=== PATIENT | male | born 1955 | race Caucasian/White ===

== ENCOUNTER → 2018-01-31 | Outpatient (CLI) | payer BC ==
[~2018-01-31] MED LIST: IOHEXOL 300 MG/ML 100ML VIAL. IV
== END | disposition home or self-care (01) ==
LOC: CT 13:22
DX: R59.1 Generalized enlarged lymph nodes (principal)
CPT/HCPCS: 70491

== ENCOUNTER 2019-12-11 18:47 | Emergency (ER) | payer BC ==
[2019-12-11] MEDS ORDERED: ONDANSETRON PF 4 MG/2 ML VIAL. IVP ONE (19:15)
[2019-12-11] MEDS ORDERED: fentaNYL PF VIAL 100 MCG/2 ML VIAL IVP ONE (19:15)
[2019-12-11] MEDS ORDERED: LABETALOL 20 MG/4 ML DISP.SYRIN. IVP ONE (19:15)
[2019-12-11 19:27] LABS: BASO # 0.1 x10^3/uL (0.0-0.2); BASO % 1 % (0-3); EOS # 0.1 x10^3/uL (0.0-0.7); EOS % 0 % (0-3); HEMATOCRIT 48.5 % (39.0-53.0); HEMOGLOBIN 16.3 g/dL (13.0-17.5); LYMPH % 6 % (24-48); MEAN CORPUSCULAR HEMOGLOBIN 29 pg (25-35); MEAN CORPUSCULAR HGB CONC 34 g/dL (31-37); MEAN CORPUSCULAR VOLUME 85 fL (79-100); MONO # 0.8 x10^3/uL (0.0-1.1); MONO % 5 % (0-9); NEUT % 88 % (31-73); PLATELET COUNT 256 x10^3/uL (140-400); RED CELL DISTRIBUTION WIDTH 13.7 % (11.5-14.5)
[2019-12-11 19:41] LABS: CALCIUM 9.3 mg/dL (8.5-10.1); CREATININE 1.4 mg/dL (0.7-1.3); GFR 51.2; POTASSIUM 3.3 mmol/L (3.5-5.1)
[2019-12-11 19:47] LABS: ALBUMIN 3.8 g/dL (3.4-5.0); ALBUMIN/GLOBULIN RATIO 0.9 (1.0-1.7); TOTAL BILIRUBIN 0.5 mg/dL (0.2-1.0)
[2019-12-11 19:52] LABS: % LYMPHS 6 % (24-48); % MONOS 3 % (0-10); % SEGS 91 % (35-66); PLT ESTIMATE ADEQUATE (ADEQUATE); TOXIC GRANULATION SLIGHT
--- NOTE | 2019-12-11 20:34 | RAD ---
STUDY: CT head without contrast INDICATION: Headache. COMPARISON: None. TECHNIQUE: Axial CT imaging through the head without the use of intravenous contrast. Sagittal and coronal reformats were obtained. One or more of the following individualized dose reduction techniques were utilized for this examination: 1. Automated exposure control 2. Adjustment of the mA and/or kV according to patient size 3. Use of iterative reconstruction technique. FINDINGS: No acute intracranial hemorrhage. No mass effect or midline shift. Relatively symmetric sulcation pattern. Note is made that there are subtle areas of low attenuation involving portions of the right cerebral hemisphere such as at the temporal-occipital region, image 13 series 2, extending along the lower aspect of the temporal lobe such as on image 9 series 2. No acute calvarial abnormality. Underpneumatized left mastoid air cells. Normally aerated right mastoid air cells. No layering fluid seen within the visualized paranasal sinuses. IMPRESSION: 1. No acute intracranial hemorrhage. 2. Subtle regions of low attenuation involving portions of the right cerebral hemisphere however given the distribution and subtle nature, artifact is the favored etiology. There is no mass effect or midline shift and the overall sulcation pattern of both cerebral hemispheres is essentially symmetric. If there are localized neurologic deficits, MRI could be considered but is not felt necessary based on the CT findings alone. Electronically signed by: ADELFO GRAY MD (12/11/2019 8:31 PM) [facility]
[2019-12-11 21:57] VITALS: BP 157/83
[2019-12-11] MEDS ORDERED: ONDA4TAB7 PO (22:20)
[2019-12-11] MEDS ORDERED: AMOX1TAB61 PO (22:20)
--- NOTE | 2019-12-11 22:21 | PHYS DOC ---
Past Medical History Alcohol Use: None Adult General Chief Complaint Chief Complaint: DIZZY/LIGHT HEADED HPI HPI Patient is a 64 year old female with history of multiple medical problems who presents with headache, neck pain, nausea vomiting and dizziness. Patient states he took his routine medication this. Accidentally took an extra 50 mg dose of hydralazine. Patient reports dizziness after hydralazine. He also reports posterior neck pain with soft tissue swelling. Patient states he was evaluated by his PCP earlier this week for this and was prescribed antibiotics however, the antibiotics and ascription was sent [facility] patient has yet to have the prescription male. Patient denies fevers chills, sweats. Denies neck stiffness rash. No chest pain palpitations. No abdominal pain. Denies urinary frequency urgency or dysuria. Extremity weakness or loss of sensation or other strokelike symptoms. No other acute symptoms or complaints. [] Review of Systems Review of Systems Review of symptoms as per history of present illness. All other review symptoms are negative All other systems were reviewed and found to be within normal limits, except as documented in this note. Current Medications Current Medications Current Medications Medications (Trade) Dose Ordered Sig/Betty Start Time Stop Time Status Last Admin Dose Admin Amoxicillin/ Clavulanate Potassium (Augmentin 875/ 125mg) 1 tab 1X ONCE 12/11/19 22:30 12/11/19 22:31 Fentanyl Citrate (Fentanyl 2ml Vial) 75 mcg 1X ONCE 12/11/19 19:15 12/11/19 19:18 DC 12/11/19 19:24 75 MCG Labetalol HCl (Normodyne Iv Push) 20 mg 1X ONCE 12/11/19 19:15 12/11/19 19:18 DC 12/11/19 19:24 20 MG Ondansetron HCl (Zofran Odt) 4 mg 1X ONCE 12/11/19 22:30 12/11/19 22:31 Ondansetron HCl (Zofran) 4 mg 1X ONCE 12/11/19 19:15 12/11/19 19:18 DC 12/11/19 19:23 4 MG Allergies Allergies Allergies Coded Allergies Type Severity Reaction Last Updated Verified No Known Drug Allergies 01/31/18 No Physical Exam Physical Exam Constitutional: Well developed, well nourished, no acute distress, non-toxic appearance. [] HENT: Normocephalic, atraumatic, bilateral external ears normal, oropharynx moist, no oral exudates, nose normal. [] Eyes: PERRLA, EOMI, conjunctiva normal, no discharge. [] Neck: Normal range of motion, right upper paracervical subcutaneous soft tissue mass, mass presses and is minimally tender. No overlying induration or erythema.. [] Cardiovascular:Heart rate regular rhythm, no murmur [] Lungs & Thorax: Bilateral breath sounds clear to auscultation [] Abdomen: Bowel sounds normal, soft, no tenderness. [] Skin: Warm, dry, no erythema, no rash. [] Back: No tenderness, no CVA tenderness. [] Extremities: No tenderness, no cyanosis, no clubbing, ROM intact, no edema. [] Neurologic: Alert and oriented X 3, cranial nerves II through XII grossly intact, normal motor function, normal sensory function, no focal deficits noted. [] Psychologic: Affect normal, judgement normal, mood normal. [] Current Patient Data Vital Signs Vital Signs Date Time Temp Pulse Resp B/P (MAP) Pulse Ox O2 Delivery O2 Flow Rate FiO2 12/11/19 20:30 75 18 97 12/11/19 19:24 209/108 12/11/19 19:24 Room Air 12/11/19 19:05 97.7 97.7 Lab Values Laboratory Tests Test 12/11/19 19:10 White Blood Count 16.0 x10^3/uL (4.0-11.0) H Red Blood Count 5.70 x10^6/uL (4.30-5.70) Hemoglobin 16.3 g/dL (13.0-17.5) Hematocrit 48.5 % (39.0-53.0) Mean Corpuscular Volume 85 fL (79-100) Mean Corpuscular Hemoglobin 29 pg (25-35) Mean Corpuscular Hemoglobin Concent 34 g/dL (31-37) Red Cell Distribution Width 13.7 % (11.5-14.5) Platelet Count 256 x10^3/uL (140-400) Neutrophils (%) (Auto) 88 % (31-73) H Lymphocytes (%) (Auto) 6 % (24-48) L Monocytes (%) (Auto) 5 % (0-9) Eosinophils (%) (Auto) 0 % (0-3) Basophils (%) (Auto) 1 % (0-3) Neutrophils # (Auto) 14.0 x10^3/uL (1.8-7.7) H Lymphocytes # (Auto) 1.0 x10^3/uL (1.0-4.8) Monocytes # (Auto) 0.8 x10^3/uL (0.0-1.1) Eosinophils # (Auto) 0.1 x10^3/uL (0.0-0.7) Basophils # (Auto) 0.1 x10^3/uL (0.0-0.2) Segmented Neutrophils % 91 % (35-66) H Lymphocytes % 6 % (24-48) L Monocytes % 3 % (0-10) Toxic Granulation Slight Platelet Estimate Adequate (ADEQUATE) Sodium Level 139 mmol/L (136-145) Potassium Level 3.3 mmol/L (3.5-5.1) L Chloride Level 103 mmol/L (98-107) Carbon Dioxide Level 27 mmol/L (21-32) Anion Gap 9 (6-14) Blood Urea Nitrogen 18 mg/dL (8-26) Creatinine 1.4 mg/dL (0.7-1.3) H Estimated GFR (Cockcroft-Gault) 51.2 BUN/Creatinine Ratio 13 (6-20) Glucose Level 215 mg/dL (70-99) H Calcium Level 9.3 mg/dL (8.5-10.1) Total Bilirubin 0.5 mg/dL (0.2-1.0) Aspartate Amino Transferase (AST) 20 U/L (15-37) Alanine Aminotransferase (ALT) 24 U/L (16-63) Alkaline Phosphatase 101 U/L (46-116) Troponin I Quantitative < 0.017 ng/mL (0.000-0.055) Total Protein 8.0 g/dL (6.4-8.2) Albumin 3.8 g/dL (3.4-5.0) Albumin/Globulin Ratio 0.9 (1.0-1.7) L Laboratory Tests 12/11/19 19:10 Laboratory Tests 12/11/19 19:10 EKG EKG [EKG: Reviewed] Radiology/Procedures Radiology/Procedures [CT head: No definite acute findings per radiology report] Course & Med Decision Making Course & Med Decision Making Pertinent Labs and Imaging studies reviewed. (See chart for details) [Dizziness and nausea secondary to medication taken prior to ED arrival versus hypertension. Patient blood pressure improved with labetalol. Blood pressure stable. Patient states he feels much better. Elevated white blood cell count w ith lymphadenopathy. We'll place on a course of antibiotics or discontinue patient. Treatment and follow-up with PCP next week for reevaluation. Return precautions reviewed. Patient verbalizes understanding and agreement discharge instructions prior to departure Dragon Disclaimer Dragon Disclaimer This electronic medical record was generated, in whole or in part, using a voice recognition dictation system. Departure Departure Impression: Primary Impression: Dizziness Additional Impression: Cervical lymphadenopathy Disposition: HOME, SELF-CARE Condition: STABLE Referrals: Anthony CHILDRESS MD (PCP) Patient Instructions: Dizziness, [id number] Additional Instructions: ROS as per HPI Scripts Amoxicillin/Potassium Clav (AUGMENTIN 875-125 TABLET) 1 Each Tablet 1 TAB PO BID for 10 Days, #20 TAB 0 Refills Prov: SABRA JASON DO 12/11/19 Ondansetron Hcl (ZOFRAN) 4 Mg Tablet 1 TAB PO Q6HRS, #10 TAB 0 Refills Prov: SABRA JASON DO 12/11/19 Problem Qualifiers SABRA JASON DO Dec 11, 2019 22:21
[2019-12-11] MEDS ORDERED: ONDANSETRON ODT 4 MG TAB.RAPDIS. PO ONE (22:30)
[2019-12-11] MEDS ORDERED: AMOXICILLIN/K CLAV 875/125MG TABLET. PO ONE (22:30)
--- NOTE | 2019-12-11 23:34 | RAD ---
Chest AP portable at 1918: Reason for examination: Dizziness. The heart size is normal. Mediastinum is unremarkable. Lung cummings are clear. No acute bony abnormalities are seen. Impression: No acute cardiopulmonary disease. Electronically signed by: Yady Dumont MD (12/11/2019 11:31 PM) [facility]
--- NOTE | 2019-12-12 07:31 | EKG ---
[facility] [address] [place] [address] Test Date: 2019-12-11 Test Time: 19:45:32 Pat Name: ALIVIA FARLEY Department: Room: Gender: M Director Trust: : 1955 Requested By: SABRA JASON Order Number: [id number] Reading MD: Measurements Intervals [place] Rate: 69 P: 26 W[place]: 160 QRS: -17 QRSD: 106 T: 34 QT: 424 QTc: 456 Interpretive Statements SINUS RHYTHM LEFTWARD AXIS R-S TRANSITION ZONE IN V LEADS DISPLACED TO THE LEFT OTHERWISE NORMAL ECG RI6.01 No previous ECG available for comparison
== END 2019-12-11 22:29 | disposition home or self-care (01) ==
LOC: ER 18:47
DX: R42 Dizziness and giddiness (principal); R59.0 Localized enlarged lymph nodes; R51 Headache; R11.2 Nausea with vomiting, unspecified
CPT/HCPCS: 36415; 70450; 71045; 80053; 84484; 85007; 85025; 93005; 96374; 96375; 99285; J2405; J3010; J3490; Q0162